=== PATIENT | female | born 1990 | race Caucasian/White ===

== ENCOUNTER 2016-05-07 17:27 | Emergency (ER) | payer SELFPAY ==
[2016-05-07 17:39] VITALS: TEMP 97.7; BMI 41.5
[2016-05-07] MEDS ORDERED: NITROGLYCERINE 2 % OINTMENT PACK TOP ONE (18:29)
[2016-05-07] MEDS ORDERED: NITROGLYCERINE 0.4 MG TAB SL ONE (18:29)
[2016-05-07] MEDS ORDERED: METOPROLOL 5 MG/5 ML SDV IV ONE (18:29)
[2016-05-07] MEDS ORDERED: ASPIRIN (CHEWABLE) 81 MG TAB PO ONE (18:29)
[2016-05-07 18:48] LABS: LEUKOCYTES/URINE NEG (NEGATIVE); NITRITE/URINE NEG (NEGATIVE); URINE OCCULT BLOOD NEG (NEG/TRACE)
--- NOTE | 2016-05-07 18:50 | EDPRACDOC ---
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 STATES SHE HAS HAD EPISODES OF CHEST PAIN IN THE PAST BUT NEVER HAS HAD THE LEFT ARM PAIN. PT DENIES NAUSEA OR VOMITING, CHILLS, FEVER, OR COUGH. STATES SHE HAS BEEN DIAGNOSED WITH TACHYCARDIA AND LEAKING HEART VALVE. PT HAS POSITIVE FAMILY HISTORY WITH MOTHER AND FATHER HAVING STROKES AND NY'S. MOTHER AT AGE 47 OF AN NY. PT STATES SHE HAD HTN WHILE . Chest Pain Location: Reports: Left Chest Pain Radiation: Reports: Jaw, Shoulder (L), Arm (L) Symptoms Occur: Reports: Gradually Cardiac Risk Factors: Reports: Smoker, Family History Cardiac History of: Reports: Valve Disease PE Risk Factors: Reports: None Medications within 24 Hours: Reports: None Prehospital Care: Reports: None Pain Came On: Reports: Gradually Pain Status: Present Now Pain Description: Reports: Sharp, Stabbing Pain Severity: Mild Pain Worsens With: Reports: Nothing Pain Improves With: Reports: Nothing Associated Signs and Symptoms: Reports: None ED Past Medical History - History Reviewed Yes Nurses notes reviewed and agree except as marked - Patient Medical History Cardiac History: Reports: Hypertension (during ) GI/ History: Denies: Urinary Tract Infection Psychological History: Reports: Anxiety. Denies: Depression Systemic History: Reports: Anemia. Denies: Lupus Surgical History: Reports: Other (, BOWEL MALROTATION CORRECTION, D&C) - Family Medical History Reports: Hypertension (mother, MGF, MGM, brother), Diabetes (mother), Cancer ( mother), Stroke (mother, MGF), Cardiac Disorders (mother, MGF, brother) - Social Medical History Smoking Status: Heavy tobacco smoker (5 or more cigarettes/day or daily pipe/ cigar) EDM Review of Systems - Review of Systems ROS Negative Except as Marked: Yes All systems reviewed and were negative except as marked - Physical Exam Constitutional: Alert Oriented to: Time, Person, Place Last recorded Vital Signs: Last Vital Signs Temp 97.7 F 05/07/16 17:36 Pulse 115 05/07/16 17:36 Resp 18 05/07/16 17:36 BP 169/92 05/07/16 17:36 Pulse Ox 100 05/07/16 17:36 Oxygen Pulse Oxygen Saturation 100 O2 Device Room Air Oxygen Flow Rate Fraction of Inspired Oxygen ( FIO2) - HEENT Head: Normal ( normocephalic) Eye Exam: Normal (PERRL, EOMI, Sclera white) Oropharynx: Normal (Pharynx:Moist without exudate,Gums-no swelling) Tympanic Membrane: Normal Nose: No Symptoms Reported (septum midline) Neck: Normal (FROM, trachea at midline) - Respiratory/Cardiovascular Respiratory: Normal - CTA (BBS clear to auscultation without adventitious sounds ) Cardiovascular: Tachycardia - GI Auscultation: Normal (NABS) Palpation: Normal (Soft,No rebound or guarding, non distended) Tenderness: Non tender Heard's Sign: Negative Rectal Exam: Deferred - Musculoskeletal Back: Normal (Non-Tender) Extremities: Normal (Normal tone, Pulses 2+ No cyanosis or edema, FROM) - Integumentary Skin: Normal, Warm, Dry Lymphatics: Normal (no adenopathy) - Neurologic Memory Impaired: Normal Motor Function: Normal (Normal tone, Pulses 2+ No cyanosis or edema, FROM) Cranial Nerve: Normal (CN II-X11 intact sensation, strength 5/5) Cerebellar: Normal Mood Description: Normal Perception: Normal ED Chest Pain Exam - Respiratory/Cardiovascular Respiratory: Normal - CTA Cardiovascular/Chest: Tachycardia Radial Pulse: Normal Femoral Pulse: Normal Pedal Pulse: Normal Carotid Arteries: Normal Edema: negative: 1+, 2+, 3+, 4+, 5, 6 Chest Palpation: Normal - Differential Diagnosis Other - Action Patient received Aspirin within last 24 hours?: No ASA given in the ED: No Patient received Beta Bill within last 24hrs: No - Results All Results Reviewed and Normal except as Highlighted below: No 05/07/16 19:06 05/07/16 19:06 - EKG EKG #1 EKG Time: 17:31 -: Yes EKG interpreted by me Rate: bpm: 114 Allen: Normal Rhythm: ST Block: None Hypertrophy: None ST: Normal Decision Time to Discharge: 20:22 - Departure Disposition: Home Condition: Stable Final Diagnosis: Atypical chest pain Instructions: Chest Pain (ED), Chest Wall Pain Education/Counseling Given To: Patient Education/Counseling Given Regarding: Diagnosis, Treatment, Prognosis, Follow Up Referrals: Joni Chapa MD [Primary Care Provider] - One Week Prescriptions: Lorazepam [Ativan] 0.5 mg PO TID PRN #10 tab PRN Reason: Anxiety Additional Instructions: PLEASE MAKE A FOLLOW UP APPOINTMENT WITH YOUR [facility] OR WITH DR ALFREDO TO HAVE AN OUTPT STRESS TEST. RETURN TO THE ED FOR WORSENING SYMPTOMS OR CONCERNS. FOLLOW UP WITH PCP NEXT WEEK.
[2016-05-07 19:18] LABS: AUTOMATED BASOPHIL 2.1 % (0-2); AUTOMATED EOSINOPHIL 1.5 % (0-5); AUTOMATED LYMPH 26.9 % (17-44); AUTOMATED MONOCYTE 6.5 % (3-10); MPV 8.8 fL (7.4-10.4)
[2016-05-07 19:28] LABS: BLOOD UREA NITROGEN 9 MG/DL (7-17); CALCULATED OSMOLALITY 269 MOs/Kg (270-290); CHLORIDE 107 mEq/L (98-107); CPK TOTAL WITH POSSIBLE MB 28 IU/L (30-134); GLUCOSE 88 MG/DL (70-99); SODIUM LEVEL 141 mEq/L (137-146)
--- NOTE | 2016-05-07 19:31 | DIRPT ---
CLINICAL DATA: 25-year-old female with left-sided chest pain radiating to the jaw and left shoulder/arm since earlier today. EXAM: CHEST 2 VIEW COMPARISON: Chest x-ray 04/29/2016. FINDINGS: Lung volumes are normal. No consolidative airspace disease. No pleural effusions. No pneumothorax. No pulmonary nodule or mass noted. Pulmonary vasculature and the cardiomediastinal silhouette are within normal limits. IMPRESSION: No radiographic evidence of acute cardiopulmonary disease. Electronically Signed By: Paulino Padron M.D. On: 05/07/2016 19:29
[2016-05-07] MEDS ORDERED: LORAZEPAM 1 MG TAB PO ONE (20:20)
[2016-05-07] MEDS ORDERED: OXYCODONE HCL 5 MG TABLET PO ONE (20:49)
[2016-05-07 21:16] VITALS: BP 148/80; PULSE 102
== END 2016-05-07 21:13 | disposition home or self-care (01) ==
LOC: ED 17:27
DX: R07.89 Other chest pain (principal)
CPT/HCPCS: 36415; 71020; 80053; 81001; 81025; 82550; 83880; 84484; 85025; 85379; 93005; 99282; J3490